=== PATIENT | female | born 1980 | race Caucasian/White ===

== ENCOUNTER 2021-08-08 16:09 | Emergency (ER) | payer OTHER ==
--- NOTE | 2021-08-08 16:14 | ERPHSYRPT ---
- History of Present Illness Time Seen by Provider: 08/08/21 16:13 Source: patient Exam Limitations: no limitations Physician History: The 40-year-old thin white female who has had a tubal ligation in the past and presents with 3-1/2-week history of constipation. Patient has not had a bowel movement 3-1/2 weeks. She has no abdominal pain she has had no nausea or vomiting. She is eating and drinking normally. She is never had any like this in the past. She is never had a colonoscopy. She was sent to the hospital to undergo CAT scan of the abdomen pelvis. Timing/Duration: week(s) () Severity: mild Modifying Factors: Improves With: nothing Associated Symptoms: other (Constipation), No nausea, No vomiting, No abdominal pain, No shortness of breath, No chest pain, No loss of appetite Allergies/Adverse Reactions: No Known Drug Allergies Allergy (Verified 08/08/21 16:35) Home Medications: Gabapentin [Neurontin] 800 mg PO TID 07/07/15 [History] Cyclobenzaprine HCl 10 mg [Cyclobenzaprine 10 MG] 10 mg PO TID 08/08/21 [History] Hx Tetanus, Diphtheria Vaccination/Date Given: No Hx Influenza Vaccination/Date Given: No Hx Pneumococcal Vaccination/Date Given: No Travel Risk - International Travel Have you traveled outside of the country in past 3 weeks: No - Coronavirus Screening Are you exhibiting any of the following symptoms?: No Close contact with a COVID-19 positive Pt in past 14-21 Days: No - Review of Systems Constitutional: No Symptoms Eyes: No Symptoms Ears, Nose, & Throat: No Symptoms Respiratory: No Symptoms Cardiac: No Symptoms, No Chest Pain Abdominal/Gastrointestinal: Constipation, No Abdominal Pain, No Nausea, No Vomiting, No Diarrhea Genitourinary Symptoms: No Symptoms Musculoskeletal: No Symptoms Skin: No Symptoms Neurological: No Symptoms Psychological: No Symptoms Endocrine: No Symptoms Hematologic/Lymphatic: No Symptoms Immunological/Allergic: No Symptoms All Other Systems: Reviewed and Negative - Past Medical History Pertinent Past Medical History: Yes Neurological History: No Pertinent History ENT History: No Pertinent History Cardiac History: No Pertinent History Respiratory History: No Pertinent History Endocrine Medical History: No Pertinent History Musculoskeletal History: No Pertinent History GI Medical History: No Pertinent History, Other History: No Pertinent History Psycho-Social History: Anxiety, Bipolar, Depression Female Reproductive Disorders: Other Other Medical History: CHRONIC STOMACHE PAIN. 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 - Past Surgical History Past Surgical History: Yes Neuro Surgical History: No Pertinent History Cardiac: No Pertinent History Respiratory: No Pertinent History Gastrointestinal: Appendectomy Genitourinary: No Pertinent History Musculoskeletal: No Pertinent History Female Surgical History: Tubal Ligation Other Surgical History: TONSILECTOMY - Social History Smoking Status: Current every day smoker How long have you smoked: YRS Exposure to second hand smoke: Yes Drug Use: none Patient Lives Alone: No - Nursing Vital Signs Nursing Vital Signs: Initial Vital Signs Temperature 97.3 F 08/08/21 16:26 Pulse Rate 73 08/08/21 16:26 Blood Pressure 144/85 08/08/21 16:26 O2 Sat by Pulse Oximetry 99 08/08/21 16:26 Pain Scale Pain Intensity 3 - Physical Exam General Appearance: no apparent distress, alert, anxiety, thin Eye Exam: PERRL/EOMI, eyes nml inspection Ears, Nose, Throat Exam: normal ENT inspection, moist mucous membranes Neck Exam: normal inspection, non-tender, supple, full range of motion Respiratory Exam: normal breath sounds, lungs clear, airway intact, No chest tenderness, No respiratory distress Cardiovascular Exam: regular rate/rhythm, normal heart sounds, normal peripheral pulses Gastrointestinal/Abdomen Exam: soft, normal bowel sounds, No tenderness Pelvic Exam: not done Rectal Exam: not done Back Exam: normal inspection, normal range of motion, No CVA tenderness, No vertebral tenderness Extremity Exam: normal inspection, normal range of motion, pelvis stable Neurologic Exam: alert, oriented x 3, cooperative, head of digital II-XII nml as tested, normal mood/affect, nml cerebellar function, nml station & gait, sensation nml Skin Exam: normal color, warm, dry Lymphatic Exam: No adenopathy SpO2 Interpretation: normal O2 Delivery: Room Air - Course Nursing assessment & vital signs reviewed: Yes Ordered Tests: Active Orders 24 hr Category Date Time Status ABDOMEN AND PELVIS W/0 CONTRAS [CT] Stat Exams 08/08/21 17:25 Taken - Progress Progress: unchanged Progress Note: 08/08/21 18:45 Cat scan of the abdomen pelvis compared to CAT scan of the abdomen pelvis dated 11/03/2019 shows moderate diffuse fecal stasis remaining abdomen and pelvis CT without contrast is negative Counseled pt/family regarding: diagnosis, need for follow-up, rad results - Departure Departure Disposition: Home Clinical Impression: Constipation Condition: Stable Critical Care Time: No Referrals: TORO STANTON DO [Primary Care Provider] - Follow up/PCP as directed Additional Instructions: Drink plenty of fluids. May use [id number] [id number] as instructed on the package or container. may also use one bottle of magnesium citrate rapidly for relief of constipation. follow up with primary doctor for further management
[2021-08-08 18:24] VITALS: PULSE 72; O2SAT 98
[2021-08-08 18:30] VITALS: BP 120/68
--- NOTE | 2021-08-09 08:40 | XRAY ---
Indication: Abdomen pain. Constipation. Multiple contiguous axial images obtained through the abdomen and pelvis without contrast. Comparison: November 03, 2019. Lung bases remain clear. Heart is not enlarged. Stomach is mildly distended with food/fluid. Noncontrasted stomach and bowel loops nonobstructed. Again appendectomy reported. There remains moderate diffuse scattered colonic fecal debris throughout greatest in the ascending and transverse colon. No free fluid/air. Gallbladder contracted without gallstones. Remaining liver, pancreas, spleen, adrenal glands, kidneys, ureters, bladder, uterus, and aorta are unremarkable for noncontrast exam. Osseous structures intact. Impression: 1. Again diffuse fecal stasis. 2. Remaining CT abdomen/pelvis without contrast exam is negative.
== END 2021-08-08 18:55 | disposition home or self-care (01) ==
LOC: ED 16:09
DX: K59.00 Constipation, unspecified (principal); Z72.0 Tobacco use
CPT/HCPCS: 74176; 99283